=== PATIENT | male | born 1995 | race Hispanic/Latino ===

== ENCOUNTER 2017-07-01 22:31 | Emergency (ER) | payer MEDICAID ==
[2017-07-02 02:13] LABS: Alanine Aminotransferase 11 units/L (7-56); Albumin 3.9 g/dL (3.9-5); Albumin/Globulin Ratio 1.3 %; Alkaline Phosphatase 68 units/L (35-129); Anion Gap 17 mmol/L; BUN/Creatinine Ratio 22; Basophils % (Auto) 0.5 % (0.0-1.8); Blood Urea Nitrogen 13 mg/dL (9-20); Carbon Dioxide 26 mmol/L (22-30); Chloride 101.2 mmol/L (98-107); Eosinophils % (Auto) 6.1 % (0.0-4.3); Glucose 89 mg/dL (75-100); Hematocrit 42.3 % (35.5-45.6); Hemoglobin 14.3 gm/dl (11.8-15.2); Lipase 30 units/L (13-60); Mean Corpuscular HGB Conc 34 % (32-34); Mean Corpuscular Hemoglobin 32 pg (28-32); Mean Corpuscular Volume 95 fl (84-94); Platelet Count 267 K/mm3 (140-440); Potassium 3.7 mmol/L (3.6-5.0); Red Blood Count 4.48 M/mm3 (3.65-5.03); Red Cell Distribution Width 12.9 % (13.2-15.2); Sodium 140 mmol/L (137-145); Total Protein 6.9 g/dL (6.3-8.2)
[2017-07-02 03:07] LABS: Bacteria,Urine 2+ /HPF (Negative); Bilirubin,Urine NEG (Negative); Blood,Urine NEG (Negative); Ketones,Urine NEG (Negative); Leukocyte Esterase,Urine LG (Negative); Mucus,Urine FEW /HPF; Nitrite,Urine NEG (Negative); Urobilinogen,Urine < 2.0 mg/dL (<2.0)
[2017-07-02 03:32] LABS: WBC,Urine > 182.0 /HPF (0.0-6.0)
[2017-07-02] MEDS ORDERED: ZITHROMAX PO ONE (10:52)
[2017-07-02] MEDS ORDERED: XYLOCAINE 1% MPF 5 mL INFILTRATI ONE (10:52)
[2017-07-02] MEDS ORDERED: ROCEPHIN IM ONE (10:52)
[2017-07-02 10:54] VITALS: BP 104/56
--- NOTE | 2017-07-02 11:00 | Emergency Department Report ---
ED General Adult HPI - General Chief complaint: Abdominal Pain Stated complaint: ABD PAIN Time Seen by Provider: 07/02/17 10:45 Source: patient Mode of arrival: Ambulatory Limitations: No Limitations - History of Present Illness Initial comments: [id number] male who was previously unknown to me. He presents to the ER with suprapubic abdominal pain and dysuria. His symptoms have been present for 2 or 3 days. They're constant. They do not have exacerbating or relieving factors. He denies testicular pain. He denies headache, neck pain, chest pain, right lower quadrant pain. Patient reports new recent sexual contacts. -: Gradual Location: abdomen Radiation: non-radiation Severity scale (0 -10): 10 Quality: aching Improves with: none Worsens with: none Associated Symptoms: denies other symptoms, other (dysuria) - Related Data Previous Rx's Medication Instructions Recorded Last Taken Type Ranitidine HCl [Zantac 150 MG TAB] 150 mg PO Q12H #60 tablet 05/25/15 Unknown Rx Nitrofurantoin Rankin/M-Cryst 100 mg PO Q12HR #14 capsule 07/02/17 Unknown Rx [Macrobid CAP] Phenazopyridine [Pyridium] 100 mg PO TID PRN #6 tab 07/02/17 Unknown Rx Allergies Allergy/AdvReac Type Severity Reaction Status Date / Time No Known Allergies Allergy Verified 05/24/15 22:57 ED Review of Systems ROS: Stated complaint: ABD PAIN Other details as noted in HPI Constitutional: denies: fever Eyes: denies: eye discharge ENT: denies: epistaxis Respiratory: denies: cough Cardiovascular: denies: chest pain Gastrointestinal: abdominal pain Genitourinary: dysuria. denies: urgency, testicular pain Musculoskeletal: as per HPI Skin: as per HPI Neurological: as per HPI Psychiatric: as per HPI, anxiety ED Past Medical Hx - Past Medical History Previous Medical History?: Yes Hx Psychiatric Treatment: Yes (ADHD) Additional medical history: Mental health disorder - Surgical History Past Surgical History?: Yes Hx Appendectomy: Yes - Social History Smoking Status: Never Smoker Substance Use Type: None - Medications Home Medications: Home Medications Medication Instructions Recorded Confirmed Last Taken Type Ranitidine HCl [Zantac 150 MG TAB] 150 mg PO Q12H #60 tablet 05/25/15 Unknown Rx Nitrofurantoin Rankin/M-Cryst 100 mg PO Q12HR #14 capsule 07/02/17 Unknown Rx [Macrobid CAP] Phenazopyridine [Pyridium] 100 mg PO TID PRN #6 tab 07/02/17 Unknown Rx ED Physical Exam - General Limitations: No Limitations General appearance: alert, in no apparent distress - Head Head exam: Present: atraumatic, normocephalic - Eye Eye exam: Present: normal appearance, EOMI. Absent: nystagmus - ENT ENT exam: Present: normal exam, normal orophraynx, mucous membranes moist, normal external ear exam - Neck Neck exam: Present: normal inspection, full ROM - Respiratory Respiratory exam: Present: normal lung sounds bilaterally. Absent: respiratory distress, chest wall tenderness - Cardiovascular Cardiovascular Exam: Present: regular rate, normal rhythm, normal heart sounds. Absent: systolic murmur, diastolic murmur, rubs, gallop - GI/Abdominal GI/Abdominal exam: Present: soft, normal bowel sounds. Absent: distended, tenderness, guarding, rebound, rigid - Rectal Rectal exam: Present: deferred - exam: Present: normal inspection, other (escorted by nurse Hayley Kong). Absent: testicular tenderness External exam: Present: normal external exam, other (there is no testicular tenderness. There is normal testicular lie bilaterally. There is normal cremasteric reflex bilaterally.) - Extremities Exam Extremities exam: Present: normal inspection, full ROM, normal capillary refill. Absent: tenderness, pedal edema, joint swelling, calf tenderness - Back Exam Back exam: Present: normal inspection, full ROM. Absent: tenderness, CVA tenderness (R), paraspinal tenderness, vertebral tenderness - Neurological Exam Neurological exam: Present: alert, oriented X3, CN II-XII intact, normal gait, other (Extraocular movements intact. Tongue midline. No facial droop. Facial sensation intact to light touch in the V1, V2, V3 distribution bilaterally. 5 and 5 strength in 4 extremities.. Sensation is intact to light touch in 4 extremities.). Absent: motor sensory deficit - Psychiatric Psychiatric exam: Present: normal affect, normal mood - Skin Skin exam: Present: warm, dry, intact, normal color. Absent: rash ED Course Vital Signs 07/02/17 07/02/17 07/02/17 00:31 05:47 10:52 Temperature 98.1 F 98.0 F 98.7 F Pulse Rate 63 56 L 58 L Respiratory 16 18 20 Rate Blood Pressure 107/50 112/62 Blood Pressure 104/56 [Left] O2 Sat by Pulse 98 99 100 Oximetry ED Medical Decision Making - Lab Data Result diagrams: 07/02/17 00:54 07/02/17 00:54 Vital Signs 07/02/17 07/02/17 07/02/17 00:31 05:47 10:52 Temperature 98.1 F 98.0 F 98.7 F Pulse Rate 63 56 L 58 L Respiratory 16 18 20 Rate Blood Pressure 107/50 112/62 Blood Pressure 104/56 [Left] O2 Sat by Pulse 98 99 100 Oximetry Lab Results 07/02/17 07/02/17 07/02/17 Range/Units 00:54 00:54 01:09 WBC 13.0 H (4.5-11.0) K/mm3 RBC 4.48 (3.65-5.03) M/mm3 Hgb 14.3 (11.8-15.2) gm/dl Hct 42.3 (35.5-45.6) % MCV 95 H (84-94) fl MCH 32 (28-32) pg MCHC 34 (32-34) % RDW 12.9 L (13.2-15.2) % Plt Count 267 (140-440) K/mm3 Lymph % (Auto) 28.7 (13.4-35.0) % Rankin % (Auto) 8.2 H (0.0-7.3) % Eos % (Auto) 6.1 H (0.0-4.3) % Baso % (Auto) 0.5 (0.0-1.8) % Lymph # 3.7 (1.2-5.4) K/mm3 Rankin # 1.1 H (0.0-0.8) K/mm3 Eos # 0.8 H (0.0-0.4) K/mm3 Baso # 0.1 (0.0-0.1) K/mm3 Seg Neutrophils % 56.5 (40.0-70.0) % Seg Neutrophils # 7.3 (1.8-7.7) K/mm3 Sodium 140 (137-145) mmol/L Potassium 3.7 (3.6-5.0) mmol/L Chloride 101.2 (98-107) mmol/L Carbon Dioxide 26 (22-30) mmol/L Anion Gap 17 mmol/L BUN 13 (9-20) mg/dL Creatinine 0.6 L (0.8-1.5) mg/dL Estimated GFR > 60 ml/min BUN/Creatinine Ratio 22 % Glucose 89 (75-100) mg/dL Calcium 9.0 (8.4-10.2) mg/dL Total Bilirubin 0.40 (0.1-1.2) mg/dL AST 16 (5-40) units/L ALT 11 (7-56) units/L Alkaline Phosphatase 68 (35-129) units/L Total Protein 6.9 (6.3-8.2) g/dL Albumin 3.9 (3.9-5) g/dL Albumin/Globulin Ratio 1.3 % Lipase 30 (13-60) units/L Urine Color Yellow (Yellow) Urine Turbidity Cloudy (Clear) Urine pH 6.0 (5.0-7.0) Ur Specific [place] 1.021 (1.003-1.030) Urine Protein 30 mg/dl (Negative) mg/dL Urine Glucose (UA) Neg (Negative) mg/dL Urine Ketones Neg (Negative) mg/dL Urine Blood Neg (Negative) Urine Nitrite Neg (Negative) Urine Bilirubin Neg (Negative) Urine Urobilinogen < 2.0 (<2.0) mg/dL Ur Leukocyte Esterase Lg (Negative) Urine WBC (Auto) > 182.0 H (0.0-6.0) /HPF Urine RBC (Auto) 12.0 (0.0-6.0) /HPF Urine Bacteria (Auto) 2+ (Negative) /HPF Urine Mucus Few /HPF - Medical Decision Making Differential diagnosis, including but not limited to: Urinary tract infection, urethritis Assessment and plan: 22-year-old male endorsing lower abdominal suprapubic pain for 2-3 days, no right lower quadrant tenderness, rebound or guarding, no fevers or chills, no anorexia, also endorsing irritative urinary symptoms. He has no testicular tenderness, hasn't appropriate and normal testicular examination. Patient endorses sexual activity with female partners only, denies anal intercourse. Patient will be treated empirically for gonorrhea, chlamydia and cystitis. He'll be instructed to follow up with outpatient urology, as I would consider it unusual that the patient has developed a cystitis at the age of 22. Critical care attestation.: If time is entered above; I have spent that time in minutes in the direct care of this critically ill patient, excluding procedure time. ED Disposition Clinical Impression: Cystitis Disposition: DC-01 TO HOME OR SELFCARE Is pt being admited?: No Does the pt Need Aspirin: No Condition: Stable Instructions: Urinary Tract Infection in Men (ED) Additional Instructions: Urinalysis suggested urinary tract infection Cultures were sent today, and results will be available next 3-5 days. Please have your primary care doctor call the medical records department to obtain your culture results. Take the antibiotic therapy as directed. Take the pain medication as directed. I recommend outpatient testing for sexually transmitted diseases, including hepatitis, syphilis and HIV. I also recommend that you abstain from sexual activity until you have completed her antibiotic therapy, a physician states that it is safe for you to resume sexual activity, and any partners that you have been sexually active with have been tested/ treated/evaluated for sexual transmitted diseases. I also recommend follow-up with the urology specialist within the next month as it is unusual for 22-year-old male's develop simple bladder infections. Dr. Mohan is a local urology specialist. Follow-up with the primary care doctor within the next month. Dr. Galina Perla is a local primary care doctor. I recommend that you return to the ER right away with worsening pain, migration of pain, intractable nausea/vomiting, inability tolerate liquid feeds. Prescriptions: Nitrofurantoin Rankin/M-Cryst [Macrobid CAP] 100 mg PO Q12HR #14 capsule Phenazopyridine [Pyridium] 100 mg PO TID PRN #6 tab PRN Reason: Pain Referrals: SILVIA ARETAGA MD [Primary Care Provider] - 3-5 Days MAHIN TSANG MD [Staff Physician] - 3-5 Days
== END 2017-07-02 11:31 | disposition home or self-care (01) ==
LOC: ED 22:31
DX: N30.90 Cystitis, unspecified without hematuria (principal); F90.9 Attention-deficit hyperactivity disorder, unspecified type
CPT/HCPCS: 36415; 80053; 81001; 83690; 85025; 87086; 96372; 99283; J0696